=== PATIENT | male | born 1965 | race Hispanic/Latino ===

== ENCOUNTER 2017-06-03 13:00 | Emergency (ER) | payer SELFPAY ==
[2017-06-03 13:24] LABS: BASOPHILS % (AUTO) 0.8 % (0.0-5.0); EOSINOPHILS % (AUTO) 2.2 % (0.0-8.0); HEMATOCRIT 46.1 % (42-54); LYMPHOCYTES % (AUTO) 34.8 % (21.0-51.0); MEAN CORPUSCULAR HEMOGLOBIN 31.5 pg (27.0-33.0); MEAN CORPUSCULAR HGB CONC 34.7 g/dL (32.0-36.0); MEAN CORPUSCULAR VOLUME 90.6 fL (79-99); MONOCYTES % (AUTO) 11.2 % (3.0-13.0); NUCLEATED RED BLOOD CELLS 0.1 % (0.0-0.19); PLATELET COUNT (AUTO) 195 K/uL (130-400); RED BLOOD CELL COUNT(AUTO) 5.09 MIL/uL (4.50-6.20); RED CELL DISTRIBUTION WIDTH 13.6 % (11.0-15.5); WHITE BLOOD COUNT (AUTO) 6.1 K/uL (4.8-10.8)
[2017-06-03] MEDS ORDERED: ASPIRIN 325 MG TABLET ONE (13:32)
[2017-06-03] MEDS ORDERED: SODIUM POLYSTYRENE SULFONATE 15 GM/60 ML ML ONE (13:49)
[2017-06-03 14:04] LABS: INR 1.01 (0.85-1.15); PARTIAL THROMBOPLASTIN TIME 23.4 SEC (26.3-35.5); PROTHROMBIN TIME 10.4 SEC (9.6-11.6)
[2017-06-03] MEDS ORDERED: NITROGLYCERIN 0.4 MG SL TAB SL ONE (14:07)
[2017-06-03 14:30] LABS: ALANINE AMINOTRANSFERASE 61 U/L (12-78); ASPARTATE AMINOTRANSFERASE 77 U/L (10-37); BILIRUBIN,TOTAL 1.2 mg/dL (0.2-1.0); CARBON DIOXIDE 25 mmol/L (21-32); CHLORIDE 102 mmol/L (101-111); CREATINE KINASE MB < 0.5 ng/mL (0.5-3.6); CREATINE KINASE, TOTAL 37 U/L (21-232); CREATININE 0.8 mg/dL (0.5-1.5); GLOMERULAR FILTR. RATE CALC 108 mL/min (>60); GLUCOSE,RANDOM 310 mg/dL (70-105); POTASSIUM 3.8 mmol/L (3.5-5.1); SODIUM SERUM 136 mmol/L (136-145); TOTAL PROTEIN, SERUM 7.6 g/dL (6.0-8.3); UREA NITROGEN, BLOOD 12 mg/dL (7-18)
== END 2017-06-03 16:26 | disposition home or self-care (01) ==
LOC: EDH 13:00
DX: R07.89 Other chest pain (principal); N48.1 Balanitis; E11.9 Type 2 diabetes mellitus without complications; I10 Essential (primary) hypertension; E78.00 Pure hypercholesterolemia, unspecified; Z79.4 Long term (current) use of insulin; Z90.49 Acquired absence of other specified parts of digestive tract; Z72.0 Tobacco use
CPT/HCPCS: 36415; 71045; 80053; 82550; 82553; 84484; 85025; 85610; 85730; 93005

== ENCOUNTER 2019-04-21 13:07 | Emergency (ER) | payer OTHER | END 2019-04-21 13:47 | disposition home or self-care (01) | LOC: EDH 13:07 | DX: S01.81XA Laceration without foreign body of other part of head, initial encounter (principal); E11.9 Type 2 diabetes mellitus without complications; I10 Essential (primary) hypertension; Z72.0 Tobacco use; Z98.890 Other specified postprocedural states; W06.XXXA Fall from bed, initial encounter; Y93.89 Activity, other specified; Y92.89 Other specified places as the place of occurrence of the external cause; Y99.8 Other external cause status | CPT/HCPCS: 99282 ==

== ENCOUNTER 2019-05-31 11:33 | Inpatient (IN) | payer SELFPAY ==
[~2019-05-31] VITALS: Ht 157.5 cm; Wt 70.8 kg
[2019-05-31 12:07] LABS: HEMATOCRIT 43.6 % (42-54); MEAN CORPUSCULAR HGB CONC 34.6 g/dL (32.0-36.0); MEAN CORPUSCULAR VOLUME 89.5 fL (79-99); PLATELET COUNT (AUTO) 229 K/uL (130-400); RED BLOOD CELL COUNT(AUTO) 4.87 MIL/uL (4.50-6.20); RED CELL DISTRIBUTION WIDTH 12.3 % (11.0-15.5); WHITE BLOOD COUNT (AUTO) 10.7 K/uL (4.8-10.8)
[2019-05-31] MEDS ORDERED: MORPHINE SULFATE 2 MG/ML 1ML SYG ONE ×2 (12:07→16:02)
[2019-05-31] MEDS ORDERED: SODIUM CHLORIDE 0.9% 1000ML 1,000 ML IV ONE ×2 (12:07→15:54)
[2019-05-31 12:16] LABS: BASOPHILS % (AUTO) 0.5 % (0.0-5.0); EOSINOPHILS % (AUTO) 0.6 % (0.0-8.0); LYMPHOCYTES % (AUTO) 12.9 % (21.0-51.0); MONOCYTES % (AUTO) 10.4 % (3.0-13.0)
[2019-05-31] MEDS ORDERED: CEFTRIAXONE SODIUM 1 GM ONE (12:16)
[2019-05-31 12:18] LABS: BILIRUBIN,TOTAL 1.3 mg/dL (0.2-1.0); CREATININE 1.1 mg/dL (0.5-1.5); POTASSIUM 3.9 mmol/L (3.5-5.1); TOTAL PROTEIN, SERUM 8.7 g/dL (6.0-8.3)
[2019-05-31] MEDS ORDERED: INSULIN HUMULIN R 100 UNIT/ML 3ML ONE (12:41)
[2019-05-31] MEDS: SODIUM CHLORIDE 0.9% 1000ML 1,000 ML IV SCH (14:15)
[2019-05-31] MEDS: CLINDAMYCIN 600 MG/D5% WATER 50 ML IV SCH ×2 (14:15→23:07)
[2019-05-31] MEDS ORDERED: CLINDAMYCIN 300 MG/D5W 50 ML 50 ML IV SCH (14:15)
[2019-05-31] MEDS ORDERED: ACETAMINOPHEN 325 MG TAB PO PRN ×2 (14:15)
[2019-05-31] MEDS ORDERED: ONDANSETRON HCL 4 MG/2 ML VIAL IV PRN (14:15)
[2019-05-31 14:29] LABS: HEMOGLOBIN A1C 9.2 % (4.0-6.0)
[2019-05-31] MEDS ORDERED: CLINDAMYCIN 600 MG/D5% WATER 50 ML IV ONE (15:54)
[2019-05-31] MEDS ORDERED: MORPHINE SULFATE 2 MG/ML 1ML SYG IVP ONE (16:00)
[2019-05-31] MEDS ORDERED: INSULIN HUMULIN R 100 UNIT/ML 3ML SQ SCH (16:30)
[2019-05-31 17:12] VITALS: BP 137/77
[2019-05-31 20:52] VITALS: BP 142/75
[2019-05-31] MEDS ORDERED: INSULIN GLARGINE 100 UNITS/ML 10 ML VIAL SQ SCH (21:00)
[2019-05-31] MEDS: KETOROLAC TROMETHAMINE 30MG/ML IV PRN (21:11)
[2019-05-31] MEDS: FAMOTIDINE/PF 20 MG/2 ML VIAL IV SCH (21:11)
[2019-05-31] MEDS: INSULIN LISPRO 100 UNIT/ML 3ML SQ SCH (21:17)
[2019-06-01 00:20] VITALS: BP 109/64
[2019-06-01] MEDS: MORPHINE SULFATE 2 MG/ML 1ML SYG IVP PRN ×4 (00:50→22:52)
[2019-06-01 04:19] VITALS: BP 113/67
[2019-06-01] MEDS: CLINDAMYCIN 600 MG/D5% WATER 50 ML IV SCH ×3 (05:35→22:36)
--- NOTE | 2019-06-01 06:05 | NUR ---
POSITIVE BLOOD CULTURE LAB REPORTED ANEROBIC GRAM + COCCI IN CLUSTERS AND IN PAIRS.
[2019-06-01 06:23] LABS: BASOPHILS % (AUTO) 0.4 % (0.0-5.0); EOSINOPHILS % (AUTO) 1.6 % (0.0-8.0); HEMATOCRIT 40.3 % (42-54); LYMPHOCYTES % (AUTO) 20.9 % (21.0-51.0); MEAN CORPUSCULAR HEMOGLOBIN 30.8 pg (27.0-33.0); MEAN CORPUSCULAR HGB CONC 33.7 g/dL (32.0-36.0); MEAN CORPUSCULAR VOLUME 91.2 fL (79-99); MONOCYTES % (AUTO) 11.1 % (3.0-13.0); NEUTROPHILS % (AUTO) 65.3 % (40.0-77.0); PLATELET COUNT (AUTO) 217 K/uL (130-400); RED BLOOD CELL COUNT(AUTO) 4.42 MIL/uL (4.50-6.20); RED CELL DISTRIBUTION WIDTH 12.4 % (11.0-15.5); WHITE BLOOD COUNT (AUTO) 11.3 K/uL (4.8-10.8)
[2019-06-01 06:48] LABS: ALBUMIN 2.3 g/dL (3.5-5.0); BILIRUBIN,TOTAL 1.8 mg/dL (0.2-1.0); CREATININE 0.9 mg/dL (0.5-1.5); POTASSIUM 3.6 mmol/L (3.5-5.1); TOTAL PROTEIN, SERUM 7.4 g/dL (6.0-8.3)
[2019-06-01 08:00] VITALS: BP 145/78
[2019-06-01] MEDS: INSULIN LISPRO 100 UNIT/ML 3ML SQ SCH ×4 (08:33→12:00)
[2019-06-01] MEDS: ENOXAPARIN SODIUM 30 MG/0.3 ML SQ SCH (10:24)
[2019-06-01] MEDS: FAMOTIDINE/PF 20 MG/2 ML VIAL IV SCH ×2 (10:24→22:36)
[2019-06-01 12:00] VITALS: BP 114/63
[2019-06-01] MEDS ORDERED: VANCOMYCIN PROTOCOL PER PHARMACY IV SCH (15:15)
--- NOTE | 2019-06-01 15:29 | NUR ---
INITIAL SW spoke with patient. Patient states he lives with parents. Emergency contact is mother, Lucia Caro, [phone]. No home services. DME: [employer], glucometer (uses insulin). Patient works full time paramedic. He is able to complete ADL's and drives. PCP is MD at [facility]. Pharmacy is [facility]. DCP is home. Patient has no insurance or benefits. He is a [place] citizen and is presently employed. SW educated patient on [employer] $4 medication program and [employer] $5 medication program. Patient is being assisted by [employer] for financial matters. Addendum: 06/01/19 at 1533 by TORREY ARIZMENDI SS Amended: Links added.
[2019-06-01 16:00] VITALS: BP 129/74
[2019-06-01] MEDS: INSULIN HUMULIN 70/30 100 UNIT/ML 3ML SQ SCH (16:59)
[2019-06-01] MEDS ORDERED: DEXTROSE 50%-WATER 50 ML DISP.SYRIN IV PRN (17:00)
[2019-06-01] MEDS ORDERED: GLUCAGON 1MG KIT 1 MG ML IM PRN (17:00)
[2019-06-01] MEDS: VANCOMYCIN 1GM+NS 250ML 250 ML IV SCH (19:37)
[2019-06-01 20:20] VITALS: BP 133/74
[2019-06-01] MEDS: SODIUM CHLORIDE 0.9% 1000ML 1,000 ML IV SCH (22:36)
[2019-06-01] MEDS: INSULIN HUMULIN R 100 UNIT/ML 3ML SQ SCH (22:40)
[2019-06-02 00:28] VITALS: BP 134/73
[2019-06-02 04:28] VITALS: BP 123/67
[2019-06-02] MEDS: SODIUM CHLORIDE 0.9% 1000ML 1,000 ML IV SCH ×2 (06:12→16:15)
[2019-06-02] MEDS: INSULIN HUMULIN R 100 UNIT/ML 3ML SQ SCH ×4 (06:13→20:41)
[2019-06-02] MEDS: CLINDAMYCIN 600 MG/D5% WATER 50 ML IV SCH ×3 (06:16→20:41)
[2019-06-02] MEDS: MORPHINE SULFATE 2 MG/ML 1ML SYG IVP PRN ×2 (06:17→13:13)
[2019-06-02] MEDS: INSULIN HUMULIN 70/30 100 UNIT/ML 3ML SQ SCH ×2 (06:25→18:23)
[2019-06-02 08:00] VITALS: BP 121/69
[2019-06-02] MEDS: VANCOMYCIN 1GM+NS 250ML 250 ML IV SCH ×2 (09:11→20:41)
[2019-06-02] MEDS: FAMOTIDINE/PF 20 MG/2 ML VIAL IV SCH ×2 (09:11→20:41)
[2019-06-02] MEDS: ENOXAPARIN SODIUM 30 MG/0.3 ML SQ SCH (09:13)
[2019-06-02 11:50] VITALS: BP 120/64
--- NOTE | 2019-06-02 15:28 | NUR ---
NUTRITION EDUCATION MICHELLE provided Diabetes Nutrition Education. MICHELLE provided reference materials and handouts. Pt with no questions at this time. MICHELLE discussed nutrition recommendations with Pt and encouraged to notify as questions/concerns arise. Addendum: 06/02/19 at [address] RD Amended: Links added.
--- NOTE | 2019-06-02 15:33 | NUR ---
RD NOTIFICATION Pt tolerating 75gm CCD with no report of GI distress, Good PO intake at 100%. RD provided Diabetes Nutrition Education. Pt verbalized understanding. RD to continue to monitor. Please notify RD as additional nutrition concerns arise. Thank you. Addendum: 06/02/19 at [address] RD Amended: Links added.
[2019-06-02 16:00] VITALS: BP 110/66
[2019-06-02 20:12] VITALS: BP 136/79
[2019-06-02] MEDS: KETOROLAC TROMETHAMINE 30MG/ML IV PRN (20:48)
[2019-06-03 00:16] VITALS: BP 128/67
[2019-06-03] MEDS: SODIUM CHLORIDE 0.9% 1000ML 1,000 ML IV SCH (02:13)
[2019-06-03] MEDS: MORPHINE SULFATE 2 MG/ML 1ML SYG IVP PRN ×2 (03:09→08:38)
[2019-06-03] MEDS ORDERED: insulin 70/30 SQ (03:15)
[2019-06-03 03:40] VITALS: BP 115/67
[2019-06-03 03:57] LABS: BASOPHILS % (AUTO) 0.4 % (0.0-5.0); EOSINOPHILS % (AUTO) 1.3 % (0.0-8.0); HEMATOCRIT 38.7 % (42-54); LYMPHOCYTES % (AUTO) 22.7 % (21.0-51.0); MEAN CORPUSCULAR HEMOGLOBIN 30.7 pg (27.0-33.0); MEAN CORPUSCULAR HGB CONC 34.4 g/dL (32.0-36.0); MEAN CORPUSCULAR VOLUME 89.4 fL (79-99); MONOCYTES % (AUTO) 11.4 % (3.0-13.0); NEUTROPHILS % (AUTO) 63.4 % (40.0-77.0); PLATELET COUNT (AUTO) 230 K/uL (130-400); RED BLOOD CELL COUNT(AUTO) 4.33 MIL/uL (4.50-6.20); RED CELL DISTRIBUTION WIDTH 12.2 % (11.0-15.5); WHITE BLOOD COUNT (AUTO) 8.5 K/uL (4.8-10.8)
[2019-06-03 04:17] LABS: CREATININE 0.8 mg/dL (0.5-1.5); CRP QUANTITATIVE 99.9 mg/L (0.00-9.0); MAGNESIUM 1.9 mg/dL (1.80-2.40); PHOSPHORUS 4.2 mg/dL (2.5-4.9); POTASSIUM 3.2 mmol/L (3.5-5.1)
[2019-06-03 05:15] LABS: ERYTHROCYTE SEDIMENTATION RATE 58 MM/HR (0-20)
[2019-06-03] MEDS ORDERED: POTASSIUM CHLORIDE 10% ELIXIR 20 MEQ/15 ML UDCUP PO PRN (05:45)
[2019-06-03] MEDS ORDERED: LIDOCAINE HCL-MPF 1% 2ML VIAL IV PRN (05:45)
[2019-06-03] MEDS ORDERED: POTASSIUM CHLORIDE 20MEQ/100ML 100 ML IV PRN (05:45)
[2019-06-03] MEDS ORDERED: POTASSIUM CHLORIDE 20 MEQ ERTAB PO ONE (05:51)
[2019-06-03] MEDS: CLINDAMYCIN 600 MG/D5% WATER 50 ML IV SCH (05:53)
[2019-06-03] MEDS: INSULIN HUMULIN R 100 UNIT/ML 3ML SQ SCH ×4 (05:57→21:23)
[2019-06-03 08:08] VITALS: BP 133/79
[2019-06-03] MEDS: CEFAZOLIN SODIUM 1 GM VIAL IVP SCH ×3 (08:36→23:32)
[2019-06-03] MEDS: ENOXAPARIN SODIUM 30 MG/0.3 ML SQ SCH (08:37)
[2019-06-03] MEDS: FAMOTIDINE/PF 20 MG/2 ML VIAL IV SCH ×2 (08:37→21:20)
[2019-06-03] MEDS: POTASSIUM CHLORIDE 20 MEQ ERTAB PO PRN ×2 (08:38→18:39)
[2019-06-03] MEDS: INSULIN HUMULIN 70/30 100 UNIT/ML 3ML SQ SCH ×2 (08:50→15:35)
[2019-06-03] MEDS ORDERED: LIDOCAINE HCL-MPF 2% 5ML VIAL IM SCH (10:15)
[2019-06-03 11:14] VITALS: BP 118/72
[2019-06-03] MEDS: KETOROLAC TROMETHAMINE 30MG/ML IV PRN ×2 (15:34→21:18)
[2019-06-03 16:26] VITALS: BP 124/77
[2019-06-03 19:51] VITALS: BP 122/68
[2019-06-04 03:43] LABS: BASOPHILS % (AUTO) 0.5 % (0.0-5.0); EOSINOPHILS % (AUTO) 2.6 % (0.0-8.0); HEMATOCRIT 39.6 % (42-54); LYMPHOCYTES % (AUTO) 27.1 % (21.0-51.0); MEAN CORPUSCULAR HEMOGLOBIN 30.9 pg (27.0-33.0); MEAN CORPUSCULAR HGB CONC 34.3 g/dL (32.0-36.0); MONOCYTES % (AUTO) 16.1 % (3.0-13.0); NEUTROPHILS % (AUTO) 52.7 % (40.0-77.0); PLATELET COUNT (AUTO) 246 K/uL (130-400); RED CELL DISTRIBUTION WIDTH 12.2 % (11.0-15.5); WHITE BLOOD COUNT (AUTO) 6.3 K/uL (4.8-10.8)
[2019-06-04 04:00] VITALS: BP 119/70
[2019-06-04 04:01] LABS: CREATININE 0.9 mg/dL (0.5-1.5); CRP QUANTITATIVE 64.6 mg/L (0.00-9.0); POTASSIUM 3.5 mmol/L (3.5-5.1)
[2019-06-04 04:41] LABS: ERYTHROCYTE SEDIMENTATION RATE 50 MM/HR (0-20)
[2019-06-04] MEDS: CEFAZOLIN SODIUM 1 GM VIAL IVP SCH ×2 (06:12→16:46)
[2019-06-04] MEDS: INSULIN HUMULIN 70/30 100 UNIT/ML 3ML SQ SCH ×2 (06:16→17:00)
[2019-06-04] MEDS: INSULIN HUMULIN R 100 UNIT/ML 3ML SQ SCH ×3 (07:30→16:30)
[2019-06-04 08:00] VITALS: BP 125/72
[2019-06-04] MEDS: FAMOTIDINE/PF 20 MG/2 ML VIAL IV SCH (08:39)
[2019-06-04] MEDS: MORPHINE SULFATE 2 MG/ML 1ML SYG IVP PRN ×2 (08:40→17:15)
[2019-06-04] MEDS: POTASSIUM CHLORIDE 20 MEQ ERTAB PO PRN ×2 (08:40→12:15)
[2019-06-04] MEDS: ENOXAPARIN SODIUM 30 MG/0.3 ML SQ SCH (08:42)
[2019-06-04 11:00] VITALS: BP 104/70
[2019-06-04 16:00] VITALS: BP 121/76
[2019-06-04] MEDS ORDERED: METF-527 PO (16:53)
[2019-06-04] MEDS ORDERED: ROSU5TAB12 PO (16:53)
[2019-06-04] MEDS ORDERED: LISI10TA7 PO (16:53)
[2019-06-04] MEDS ORDERED: GLIP10TA9 PO (16:53)
[2019-06-04] MEDS ORDERED: SULF1TAB42 PO (16:56)
--- NOTE | 2019-06-04 17:20 | NUR ---
Educated patient on effective hand hygeine prior to dressing changes, proper aseptic technique for Rt leg dressing changes and iodoform packing. Patient able to verbalize technique correctly and stated if he was unable to perform, he would teach significant other to perform for him at home.
--- NOTE | 2019-06-04 18:40 | NUR ---
Discharge instructions, medication prescription and follow up recommendations provided. Verbalized understanding. Prescriptions provided to patient. Patient able to verbalize wound care procedure correctly. PIV to RFA removed, bleeding controlled and dressing applied. Patient assisted by wheelchair to emergency entrance, family to transport to home.
== END 2019-06-04 19:07 | disposition home or self-care (01) | DRG 580 ==
LOC: EDH 11:33 → EDHIP 11:34 → 4BH 17:06
PROVIDERS: ADMIT Internal Medicine; ATTEND Internal Medicine
PROC: 0J9N0ZZ Drainage of Right Lower Leg Subcutaneous Tissue and Fascia, Open Approach (ICD-10-PCS; principal; 2019-06-03)
DX: L03.115 Cellulitis of right lower limb (principal); E87.1 Hypo-osmolality and hyponatremia; E44.1 Mild protein-calorie malnutrition; E11.65 Type 2 diabetes mellitus with hyperglycemia; Z79.4 Long term (current) use of insulin; E78.5 Hyperlipidemia, unspecified; I10 Essential (primary) hypertension; F17.210 Nicotine dependence, cigarettes, uncomplicated; L02.415 Cutaneous abscess of right lower limb; Z68.28 Body mass index [BMI] 28.0-28.9, adult
CPT/HCPCS: 36415; 76882; 80048; 80053; 80202; 82728; 82948; 83036; 83605; 83735; 84100; 84145; 85025; 85651; 86140; 87040; 87070; 87076; 87077; 87186; 93971; G0378; J0690; J0696; J1650; J1815; J1885; J2405; J3370; J3490; J7030

== ENCOUNTER 2019-06-22 13:57 | Inpatient (IN) | payer OTHER, SELFPAY ==
[~2019-06-22] VITALS: Ht 165.1 cm; Wt 81.2 kg
[~2019-06-22 13:57] MED LIST: GLIP10TA9 PO; LISI10TA7 PO; METF-527 PO; ROSU5TAB12 PO; SULF1TAB42 PO; insulin 70/30 SQ
[2019-06-22 14:28] LABS: BASOPHILS % (AUTO) 0.7 % (0.0-5.0); EOSINOPHILS % (AUTO) 0.2 % (0.0-8.0); HEMATOCRIT 41.9 % (42-54); LYMPHOCYTES % (AUTO) 6.1 % (21.0-51.0); MEAN CORPUSCULAR HEMOGLOBIN 30.6 pg (27.0-33.0); MEAN CORPUSCULAR HGB CONC 35.1 g/dL (32.0-36.0); MEAN CORPUSCULAR VOLUME 87.1 fL (79-99); MONOCYTES % (AUTO) 9.9 % (3.0-13.0); NEUTROPHILS % (AUTO) 81.8 % (40.0-77.0); PLATELET COUNT (AUTO) 212 K/uL (130-400); RED BLOOD CELL COUNT(AUTO) 4.81 MIL/uL (4.50-6.20); RED CELL DISTRIBUTION WIDTH 12.4 % (11.0-15.5); WHITE BLOOD COUNT (AUTO) 18.1 K/uL (4.8-10.8)
[2019-06-22] MEDS ORDERED: KETOROLAC TROMETHAMINE 15MG/ML ONE (14:37)
[2019-06-22 14:49] LABS: CREATININE 1.2 mg/dL (0.5-1.5); POTASSIUM 3.8 mmol/L (3.5-5.1)
[2019-06-22 14:57] LABS: ALBUMIN 2.6 g/dL (3.5-5.0); BILIRUBIN,TOTAL 1.9 mg/dL (0.2-1.0); TOTAL PROTEIN, SERUM 8.2 g/dL (6.0-8.3)
[2019-06-22 16:02] LABS: APPEARANCE,URINE Clear (CLEAR); BILIRUBIN,URINE Negative (NEGATIVE); COLOR,URINE Dark Yellow (YELLOW); GLUCOSE, URINE (UA) >=1000 mg/dL (NEGATIVE); KETONES,URINE 40 mg/dL (NEGATIVE); LEUKOCYTE ESTERASE ,URINE Negative (NEGATIVE); NITRATE,URINE Negative (NEGATIVE); OCCULT BLOOD,URINE Negative (NEGATIVE); PH,URINE 5.5 (5.0-8.0); PROTEIN,URINE Trace mg/dL (NEGATIVE)
[2019-06-22 16:02] LABS: ABG BASE EXCESS -3.2 mmol/L (-2.0-3.0); ABG HCO3 19.4 mmol/L (21.0-28.0); ABG OXYGEN SATURATION 96.4 % (95.0-99.0); ABG PCO2 29 mmHg (35-48)
[2019-06-22 16:15] LABS: RBC,URINE 0-1 /HPF (0-1)
[2019-06-22 16:17] LABS: BACTERIA,URINE Few /HPF (None Seen); SQUAMOUS EPITHELIAL CELL,UR Few /HPF (0-2)
[2019-06-22] MEDS ORDERED: CEFTRIAXONE SODIUM 2 GM VIAL ONE (16:54)
[2019-06-22] MEDS ORDERED: ONDANSETRON HCL 4 MG/2 ML VIAL IVP PRN (18:30)
[2019-06-22] MEDS ORDERED: ACETAMINOPHEN 325 MG TAB PO PRN (18:30)
[2019-06-22] MEDS ORDERED: GLUCAGON 1MG KIT 1 MG ML IM PRN (18:30)
[2019-06-22] MEDS ORDERED: KETOROLAC TROMETHAMINE 15MG/ML IV PRN (18:30)
[2019-06-22] MEDS ORDERED: DEXTROSE 50%-WATER 50 ML DISP.SYRIN IV PRN (18:30)
[2019-06-22] MEDS: CEFTRIAXONE SODIUM 1 GM IVP SCH (20:00)
[2019-06-22] MEDS ORDERED: ACETAMINOPHEN 325 MG TAB ONE (20:36)
[2019-06-22 22:12] VITALS: BP 139/72
[2019-06-22 22:13] VITALS: BP 133/76
[2019-06-22] MEDS: INSULIN HUMULIN R 100 UNIT/ML 3ML SQ SCH (22:47)
[2019-06-22] MEDS: MORPHINE SULFATE 2 MG/ML 1ML SYG IVP PRN (22:47)
[2019-06-22 23:56] VITALS: BP 126/62
[2019-06-23] MEDS: MORPHINE SULFATE 2 MG/ML 1ML SYG IVP PRN (03:04)
[2019-06-23 04:04] VITALS: BP 154/76
[2019-06-23 04:22] LABS: BASOPHILS % (AUTO) 0.2 % (0.0-5.0); EOSINOPHILS % (AUTO) 0.2 % (0.0-8.0); HEMATOCRIT 36.9 % (42-54); LYMPHOCYTES % (AUTO) 10.5 % (21.0-51.0); MEAN CORPUSCULAR HGB CONC 34.4 g/dL (32.0-36.0); MEAN CORPUSCULAR VOLUME 87.2 fL (79-99); MONOCYTES % (AUTO) 12.8 % (3.0-13.0); NEUTROPHILS % (AUTO) 75.3 % (40.0-77.0); PLATELET COUNT (AUTO) 198 K/uL (130-400); RED BLOOD CELL COUNT(AUTO) 4.23 MIL/uL (4.50-6.20); RED CELL DISTRIBUTION WIDTH 12.8 % (11.0-15.5); WHITE BLOOD COUNT (AUTO) 13.5 K/uL (4.8-10.8)
[2019-06-23 04:50] LABS: BILIRUBIN,DIRECT 0.9 mg/dL (0.0-0.3); BILIRUBIN,TOTAL 1.4 mg/dL (0.2-1.0); CREATININE 0.9 mg/dL (0.5-1.5); MAGNESIUM 1.8 mg/dL (1.80-2.40); PHOSPHORUS 2.9 mg/dL (2.5-4.9); POTASSIUM 3.5 mmol/L (3.5-5.1); THYROID STIMULATING HORMONE 0.74 uIU/mL (0.36-3.74); TOTAL PROTEIN, SERUM 6.8 g/dL (6.0-8.3)
[2019-06-23 05:48] LABS: ERYTHROCYTE SEDIMENTATION RATE 63 MM/HR (0-20)
[2019-06-23] MEDS: INSULIN HUMULIN R 100 UNIT/ML 3ML SQ SCH ×3 (06:06→16:30)
[2019-06-23] MEDS ORDERED: HUM10VIA SQ (07:25)
[2019-06-23] MEDS ORDERED: INS7030 SQ (07:25)
[2019-06-23 08:35] VITALS: BP 127/67
[2019-06-23] MEDS: ENOXAPARIN SODIUM 30 MG/0.3 ML SQ SCH (08:41)
[2019-06-23] MEDS ORDERED: VANCOMYCIN PROTOCOL PER PHARMACY IV PRN (08:45)
[2019-06-23] MEDS ORDERED: VANCOMYCIN 1GM+NS 250ML 250 ML IV SCH (08:45)
[2019-06-23] MEDS ORDERED: COMPOUND IV REFRIGERATED 1 EACH IVSOLN MISC PRN (09:00)
[2019-06-23] MEDS: VANCOMYCIN 1.25 GM in SODIUM CHLORIDE 0.9% 250 ML IV SCH ×2 (09:00→21:00)
[2019-06-23] MEDS ORDERED: SODIUM CHLORIDE 0.9% 250 ML IV ONE (10:39)
[2019-06-23] MEDS ORDERED: DEXTROSE 50%-WATER 50 ML DISP.SYRIN IV PRN (10:45)
[2019-06-23] MEDS ORDERED: SODIUM CHLORIDE 0.9% 1000ML 1,000 ML IV SCH (10:45)
[2019-06-23] MEDS ORDERED: GLUCAGON 1MG KIT 1 MG ML IM PRN (10:45)
[2019-06-23] MEDS: NS-20 MEQ KCL 1000ML 1,000 ML IV SCH ×2 (11:15→19:15)
[2019-06-23] MEDS ORDERED: ZOSYN 3.375GM+NS 50ML 50 ML IV ONE (11:59)
[2019-06-23] MEDS ORDERED: GABAPENTIN 300 MG CAPSULE ONE (11:59)
[2019-06-23] MEDS: ZOSYN 3.375GM+NS 50ML 50 ML IV SCH ×2 (12:02→21:25)
[2019-06-23 12:29] VITALS: BP 128/67
--- NOTE | 2019-06-23 13:36 | NUR ---
DC PLAN PATIENT IN COVRI ISOLATION UNIT. INFO GOTTEN FROM PREVIOUS ADMISSION. Patient states he lives with parents. Emergency contact is mother, Lucia Caro, [phone]. No home services. DME: [employer], glucometer (uses insulin). Patient works maritime engineer. He is able to complete ADL's and drives. PCP is MD at [facility]. Pharmacy is [facility]. DCP is home. Patient has no insurance or benefits. He is a [place] citizen and is presently employed. MARCUS educated patient on [employer] $4 medication program and [facility] $5 medication program. Patient is being assisted by [employer] for financial matters. Addendum: 06/23/19 at 1344 by JOSE A HILL RN CM Amended: Links added.
[2019-06-23 16:16] VITALS: BP 114/69
[2019-06-23 19:49] VITALS: BP 140/87
[2019-06-23] MEDS ORDERED: GABAPENTIN 300 MG CAPSULE PO SCH (21:00)
[2019-06-23] MEDS: CEFTRIAXONE SODIUM 1 GM IVP SCH (21:25)
[2019-06-23] MEDS: GABAPENTIN 300 MG CAPSULE PO SCH (21:25)
[2019-06-23] MEDS: INSULIN GLARGINE 100 UNITS/ML 10 ML VIAL SQ SCH (21:27)
[2019-06-23] MEDS: INSULIN LISPRO 100 UNIT/ML 3ML SQ SCH (21:28)
[2019-06-23 22:05] LABS: AMPHET/METH SCREEN,URINE NEGATIVE (NEGATIVE); BARBITURATE SCREEN, URINE NEGATIVE (NEGATIVE); BENZODIAZEPINES SCREEN,URINE NEGATIVE (NEGATIVE); CANNABINOID SCREEN,URINE NEGATIVE (NEGATIVE); COCAINE SCREEN,URINE NEGATIVE (NEGATIVE); OPIATE SCREEN,URINE NEGATIVE (NEGATIVE); PHENCYCLIDINE SCREEN,URINE NEGATIVE (NEGATIVE)
[2019-06-23 23:40] VITALS: BP 116/63
[2019-06-24] MEDS: NS-20 MEQ KCL 1000ML 1,000 ML IV SCH ×3 (03:15→20:58)
[2019-06-24] MEDS: ZOSYN 3.375GM+NS 50ML 50 ML IV SCH (04:00)
[2019-06-24] MEDS: MORPHINE SULFATE 2 MG/ML 1ML SYG IVP PRN ×2 (04:08→10:02)
[2019-06-24 04:37] VITALS: BP 121/65
[2019-06-24 05:11] LABS: BASOPHILS % (AUTO) 0.3 % (0.0-5.0); EOSINOPHILS % (AUTO) 0.8 % (0.0-8.0); HEMATOCRIT 36.7 % (42-54); LYMPHOCYTES % (AUTO) 19.3 % (21.0-51.0); MEAN CORPUSCULAR HEMOGLOBIN 29.8 pg (27.0-33.0); MEAN CORPUSCULAR HGB CONC 34.1 g/dL (32.0-36.0); MEAN CORPUSCULAR VOLUME 87.4 fL (79-99); MONOCYTES % (AUTO) 12.2 % (3.0-13.0); NEUTROPHILS % (AUTO) 66.3 % (40.0-77.0); PLATELET COUNT (AUTO) 224 K/uL (130-400); WHITE BLOOD COUNT (AUTO) 12.3 K/uL (4.8-10.8)
[2019-06-24 05:42] LABS: ALBUMIN 1.7 g/dL (3.5-5.0); BILIRUBIN,TOTAL 1.6 mg/dL (0.2-1.0); CREATININE 0.8 mg/dL (0.5-1.5); PHOSPHORUS 3.1 mg/dL (2.5-4.9); POTASSIUM 3.3 mmol/L (3.5-5.1); TOTAL PROTEIN, SERUM 6.5 g/dL (6.0-8.3)
[2019-06-24 05:47] LABS: HEMOGLOBIN A1C 9.3 % (4.0-6.0)
[2019-06-24 05:51] LABS: B-TYPE NATRIURETIC PEPTIDE 54 pg/mL (0-100)
[2019-06-24 06:02] LABS: CRP QUANTITATIVE 238.8 mg/L (0.00-9.0)
--- NOTE | 2019-06-24 06:05 | NUR ---
0545: NOTIFIED OF CRITICAL D-DIMER LEVEL OF 1501 BY LABORATORY AT THIS TIME 0600: HOSPITAL SILK WINDING MACHINE OPERATOR, VANIA STRATTON, NOTIFIED OF CRITICAL RESULTS AT THIS TIME. NO NEW ORDERS RECEIVED
[2019-06-24] MEDS: INSULIN LISPRO 100 UNIT/ML 3ML SQ SCH ×5 (06:22→20:52)
[2019-06-24 06:26] LABS: ERYTHROCYTE SEDIMENTATION RATE 83 MM/HR (0-20)
[2019-06-24] MEDS ORDERED: INSULIN LISPRO 100 UNIT/ML 3ML SQ SCH (07:30)
[2019-06-24] MEDS: GABAPENTIN 300 MG CAPSULE PO SCH ×3 (10:05→20:58)
[2019-06-24] MEDS: ENOXAPARIN SODIUM 30 MG/0.3 ML SQ SCH (10:07)
[2019-06-24] MEDS: VANCOMYCIN 1.25 GM in SODIUM CHLORIDE 0.9% 250 ML IV SCH ×2 (10:09→21:00)
[2019-06-24 10:27] VITALS: BP 140/72
--- NOTE | 2019-06-24 11:55 | NUR ---
CONSULT Phoned in consult to 's office.
[2019-06-24 12:25] VITALS: BP 123/70
[2019-06-24] MEDS ORDERED: POTASSIUM CHLORIDE 20 MEQ ERTAB PO SCH (12:30)
[2019-06-24] MEDS ORDERED: GADODIAMIDE 10 MMOL/20 ML VIAL IV ONE (13:01)
[2019-06-24 16:38] VITALS: BP 111/72
[2019-06-24 20:14] VITALS: BP 131/80
[2019-06-24] MEDS: HYDROCODONE/ACETAMINOPHEN 5/325 MG TAB PO PRN (20:58)
[2019-06-24] MEDS: CEFTRIAXONE SODIUM 1 GM IVP SCH (20:58)
[2019-06-24] MEDS: INSULIN GLARGINE 100 UNITS/ML 10 ML VIAL SQ SCH (21:19)
[2019-06-24 23:57] VITALS: BP 115/69
[2019-06-25] MEDS: NS-20 MEQ KCL 1000ML 1,000 ML IV SCH ×3 (03:15→20:17)
[2019-06-25 03:24] VITALS: BP 124/70
[2019-06-25 04:25] LABS: BASOPHILS % (AUTO) 0.3 % (0.0-5.0); EOSINOPHILS % (AUTO) 1.4 % (0.0-8.0); HEMATOCRIT 36.2 % (42-54); LYMPHOCYTES % (AUTO) 22.4 % (21.0-51.0); MEAN CORPUSCULAR HEMOGLOBIN 30.2 pg (27.0-33.0); MEAN CORPUSCULAR VOLUME 88.9 fL (79-99); MONOCYTES % (AUTO) 11.1 % (3.0-13.0); NEUTROPHILS % (AUTO) 63.7 % (40.0-77.0); PLATELET COUNT (AUTO) 246 K/uL (130-400); RED BLOOD CELL COUNT(AUTO) 4.07 MIL/uL (4.50-6.20); RED CELL DISTRIBUTION WIDTH 13.2 % (11.0-15.5); WHITE BLOOD COUNT (AUTO) 10.4 K/uL (4.8-10.8)
[2019-06-25 04:37] LABS: CREATININE 0.9 mg/dL (0.5-1.5); MAGNESIUM 1.8 mg/dL (1.80-2.40); PHOSPHORUS 3.5 mg/dL (2.5-4.9); POTASSIUM 3.9 mmol/L (3.5-5.1)
[2019-06-25 04:50] LABS: CRP QUANTITATIVE 91.7 mg/L (0.00-9.0)
[2019-06-25] MEDS: INSULIN LISPRO 100 UNIT/ML 3ML SQ SCH ×7 (05:46→21:00)
[2019-06-25] MEDS: HYDROCODONE/ACETAMINOPHEN 5/325 MG TAB PO PRN ×3 (06:02→21:31)
[2019-06-25 07:57] VITALS: BP 138/74
[2019-06-25] MEDS: GABAPENTIN 300 MG CAPSULE PO SCH ×2 (08:07→20:18)
[2019-06-25] MEDS: VANCOMYCIN 1.25 GM in SODIUM CHLORIDE 0.9% 250 ML IV SCH ×2 (08:07→21:00)
[2019-06-25] MEDS: ENOXAPARIN SODIUM 30 MG/0.3 ML SQ SCH (08:08)
[2019-06-25 12:00] VITALS: BP 163/77
[2019-06-25] MEDS ORDERED: GABAPENTIN 300 MG CAPSULE PO SCH (14:00)
[2019-06-25] MEDS ORDERED: GABAPENTIN 100 MG CAPSULE ONE (14:10)
[2019-06-25 15:51] VITALS: BP 131/78
[2019-06-25 19:32] VITALS: BP 129/78
[2019-06-25] MEDS: CEFTRIAXONE SODIUM 1 GM IVP SCH (20:17)
[2019-06-25] MEDS: GABAPENTIN 100 MG CAPSULE PO SCH (20:18)
[2019-06-25] MEDS: INSULIN GLARGINE 100 UNITS/ML 10 ML VIAL SQ SCH (20:42)
[2019-06-26 00:15] VITALS: BP 129/65
[2019-06-26] MEDS: NS-20 MEQ KCL 1000ML 1,000 ML IV SCH (03:15)
[2019-06-26 04:11] VITALS: BP 124/74
[2019-06-26 05:25] LABS: BASOPHILS % (AUTO) 0.3 % (0.0-5.0); EOSINOPHILS % (AUTO) 1.6 % (0.0-8.0); HEMATOCRIT 35.9 % (42-54); LYMPHOCYTES % (AUTO) 24.3 % (21.0-51.0); MEAN CORPUSCULAR HEMOGLOBIN 29.7 pg (27.0-33.0); MEAN CORPUSCULAR HGB CONC 33.7 g/dL (32.0-36.0); MEAN CORPUSCULAR VOLUME 88.2 fL (79-99); MONOCYTES % (AUTO) 10.2 % (3.0-13.0); NEUTROPHILS % (AUTO) 62.6 % (40.0-77.0); PLATELET COUNT (AUTO) 275 K/uL (130-400); RED BLOOD CELL COUNT(AUTO) 4.07 MIL/uL (4.50-6.20); RED CELL DISTRIBUTION WIDTH 13.4 % (11.0-15.5); WHITE BLOOD COUNT (AUTO) 9.8 K/uL (4.8-10.8)
[2019-06-26] MEDS: INSULIN LISPRO 100 UNIT/ML 3ML SQ SCH ×7 (05:44→20:49)
[2019-06-26 05:47] LABS: CREATININE 0.9 mg/dL (0.5-1.5); POTASSIUM 3.7 mmol/L (3.5-5.1)
[2019-06-26] MEDS: HYDROCODONE/ACETAMINOPHEN 5/325 MG TAB PO PRN ×2 (06:19→18:19)
[2019-06-26] MEDS: VANCOMYCIN 1.25 GM in SODIUM CHLORIDE 0.9% 250 ML IV SCH ×2 (07:04→20:36)
[2019-06-26] MEDS ORDERED: VANCOMYCIN 2 GM in SODIUM CHLORIDE 0.9% 500ML 500 ML IV SCH (07:15)
[2019-06-26] MEDS: GABAPENTIN 300 MG CAPSULE PO SCH ×3 (07:55→20:37)
[2019-06-26] MEDS: GABAPENTIN 100 MG CAPSULE PO SCH ×3 (07:55→20:37)
[2019-06-26] MEDS: ENOXAPARIN SODIUM 30 MG/0.3 ML SQ SCH (07:56)
--- NOTE | 2019-06-26 08:00 | NUR ---
ASSESSMENT PT IS AAOX3 DENIES CP DENIES SOB DENIES NV NO COMPLAINTS. STATES HE CAN MOVE HIS LEGS BETTER TODAY COMPARED TO YESTERDAY AND DAYS PRIOR. CALL LIGHT WITHIN REACH.
[2019-06-26 08:36] VITALS: BP 115/71
[2019-06-26 16:23] VITALS: BP 155/84
[2019-06-26 19:52] VITALS: BP 140/74
[2019-06-26] MEDS: CEFTRIAXONE SODIUM 1 GM IVP SCH (20:35)
[2019-06-26] MEDS: INSULIN GLARGINE 100 UNITS/ML 10 ML VIAL SQ SCH (20:48)
[2019-06-26 23:42] VITALS: BP 123/73
[2019-06-27 03:22] VITALS: BP 139/61
[2019-06-27] MEDS: HYDROCODONE/ACETAMINOPHEN 5/325 MG TAB PO PRN ×2 (04:40→15:46)
[2019-06-27] MEDS: INSULIN LISPRO 100 UNIT/ML 3ML SQ SCH ×7 (05:53→20:28)
[2019-06-27 06:03] LABS: BASOPHILS % (AUTO) 0.3 % (0.0-5.0); EOSINOPHILS % (AUTO) 2.2 % (0.0-8.0); HEMATOCRIT 34.5 % (42-54); LYMPHOCYTES % (AUTO) 22.8 % (21.0-51.0); MEAN CORPUSCULAR HEMOGLOBIN 30.4 pg (27.0-33.0); MEAN CORPUSCULAR HGB CONC 34.5 g/dL (32.0-36.0); MONOCYTES % (AUTO) 8.4 % (3.0-13.0); PLATELET COUNT (AUTO) 317 K/uL (130-400); RED BLOOD CELL COUNT(AUTO) 3.92 MIL/uL (4.50-6.20); RED CELL DISTRIBUTION WIDTH 13.4 % (11.0-15.5); WHITE BLOOD COUNT (AUTO) 8.8 K/uL (4.8-10.8)
[2019-06-27 06:23] LABS: CREATININE 0.9 mg/dL (0.5-1.5); POTASSIUM 3.5 mmol/L (3.5-5.1)
[2019-06-27] MEDS ORDERED: POTASSIUM CHLORIDE 20MEQ/100ML 100 ML IV PRN (07:00)
[2019-06-27] MEDS ORDERED: LIDOCAINE HCL-MPF 1% 2ML VIAL IV PRN (07:00)
--- NOTE | 2019-06-27 08:00 | NUR ---
AM ASSESSMENT PT LAYING IN BED, WATCHING TV. A/O X 3. NO SOB. NO DISTRESS NOTED. DENIES CHEST PAIN OR DISCOMFORT. DENIES PALPITATIONS. TELE: SR. DENIES N/V AND/OR DIARRHEA. BLE WEAKNESS. C/O OCC PAIN TO LLE. UP W/ASSISTANCE. INSTRUCTED TO CALL FOR ASSISTANCE. CALL MIKAELA W/IN REACH.
[2019-06-27 08:24] VITALS: BP 125/74
[2019-06-27] MEDS: GABAPENTIN 300 MG CAPSULE PO SCH ×3 (08:34→20:24)
[2019-06-27] MEDS: ENOXAPARIN SODIUM 30 MG/0.3 ML SQ SCH (08:34)
[2019-06-27] MEDS: GABAPENTIN 100 MG CAPSULE PO SCH (08:35)
[2019-06-27] MEDS: POTASSIUM CHLORIDE 10% ELIXIR 20 MEQ/15 ML UDCUP PO PRN ×2 (08:35→11:25)
[2019-06-27] MEDS: VANCOMYCIN 1.25 GM in SODIUM CHLORIDE 0.9% 250 ML IV SCH ×2 (08:39→20:27)
--- NOTE | 2019-06-27 09:36 | NUR ---
NEUROLOGY DR HENDERSON IN TO SEE PT. UPDATED & PT'S STATUS. PLAN OF CARE REVIEWED. NEW ORDERS RECEIVED & FAXED TO PHARMACY.
[2019-06-27] MEDS: FOLIC ACID 1 MG TABLET PO SCH ×2 (11:05→20:23)
[2019-06-27] MEDS: THIAMINE HCL 100 MG TABLET PO SCH (11:05)
[2019-06-27 12:08] VITALS: BP 124/70
[2019-06-27 16:30] VITALS: BP 127/66
[2019-06-27 20:07] VITALS: BP 121/73
[2019-06-27] MEDS: CEFTRIAXONE SODIUM 1 GM IVP SCH (20:23)
[2019-06-27] MEDS: INSULIN GLARGINE 100 UNITS/ML 10 ML VIAL SQ SCH (20:28)
--- NOTE | 2019-06-27 21:00 | NUR ---
PT RESULT FOR COVID CAME BACK NEGATIVE, TRANSFERRED PT TO ROOM 417, HE IS STABLE. NO COMPLAINS OF BEING IN PAIN OR IN ANY FORMS OF DISTRESS.
[2019-06-27 23:00] VITALS: BP 126/86
[2019-06-28] MEDS: HYDROCODONE/ACETAMINOPHEN 5/325 MG TAB PO PRN ×2 (03:37→09:53)
[2019-06-28 03:39] VITALS: BP 127/69
[2019-06-28] MEDS: INSULIN LISPRO 100 UNIT/ML 3ML SQ SCH ×6 (06:31→21:12)
[2019-06-28 07:56] VITALS: BP 120/77
[2019-06-28] MEDS: FOLIC ACID 1 MG TABLET PO SCH ×2 (09:50→21:10)
[2019-06-28] MEDS: GABAPENTIN 300 MG CAPSULE PO SCH ×3 (09:50→21:09)
[2019-06-28] MEDS: THIAMINE HCL 100 MG TABLET PO SCH (09:50)
[2019-06-28] MEDS: ENOXAPARIN SODIUM 30 MG/0.3 ML SQ SCH (09:54)
[2019-06-28] MEDS ORDERED: VANCOMYCIN 1.5 GM in SODIUM CHLORIDE 0.9% 250 ML IV SCH (10:00)
--- NOTE | 2019-06-28 10:15 | NUR ---
DR. HENDERSON IN ROOM SPEAKING WITH PT.
[2019-06-28 11:49] VITALS: BP 124/62
--- NOTE | 2019-06-28 15:45 | NUR ---
Nutrition Intervention: Nutrition screen based on LOS x 6 days. Pt. asleep during RD visit. Pt. on 60gm CCD diet with good p.o. intake, as noted in EMR. Labs reviewed(BG 179, HgbA1c 9.3%, Alb 1.7). SR-20, elastic. LBM: 06/27/2019. BMI: 31.5, Obesity Grade 1. Recommendations: 1) Rec. 60gm CCD Heart healthy diet. 2) Rec. 30ml ProMod TID with meals. 3) Continue to monitor pt's nutritional status. 4) Consult RD as nutrition concerns arise. Addendum: 06/28/19 at [address] Amended: Links added.
[2019-06-28 16:20] VITALS: BP 128/73
--- NOTE | 2019-06-28 17:52 | NUR ---
DR. PENA IN ROOM SPEAKING WITH PT. RE:PLAN OF CARE. QUESTIONS ANSWERED BY DR. PENA.
[2019-06-28 20:10] VITALS: BP 133/81
[2019-06-28] MEDS: CEFTRIAXONE SODIUM 1 GM IVP SCH (21:09)
[2019-06-28] MEDS: INSULIN GLARGINE 100 UNITS/ML 10 ML VIAL SQ SCH (21:10)
[2019-06-28] MEDS: VANCOMYCIN 1.5 GM in SODIUM CHLORIDE 0.9% 250 ML IV SCH (21:10)
[2019-06-28 23:46] VITALS: BP 132/75
[2019-06-29 03:30] VITALS: BP 117/55
[2019-06-29 04:20] LABS: BASOPHILS % (AUTO) 0.4 % (0.0-5.0); EOSINOPHILS % (AUTO) 1.8 % (0.0-8.0); HEMATOCRIT 35.7 % (42-54); LYMPHOCYTES % (AUTO) 30.1 % (21.0-51.0); MEAN CORPUSCULAR HEMOGLOBIN 29.8 pg (27.0-33.0); MEAN CORPUSCULAR HGB CONC 33.3 g/dL (32.0-36.0); MEAN CORPUSCULAR VOLUME 89.5 fL (79-99); NEUTROPHILS % (AUTO) 57.7 % (40.0-77.0); PLATELET COUNT (AUTO) 384 K/uL (130-400); RED BLOOD CELL COUNT(AUTO) 3.99 MIL/uL (4.50-6.20); RED CELL DISTRIBUTION WIDTH 13.5 % (11.0-15.5); WHITE BLOOD COUNT (AUTO) 7.9 K/uL (4.8-10.8)
[2019-06-29 05:29] LABS: ERYTHROCYTE SEDIMENTATION RATE 82 MM/HR (0-20)
[2019-06-29] MEDS: INSULIN LISPRO 100 UNIT/ML 3ML SQ SCH ×7 (06:51→22:29)
[2019-06-29 07:30] VITALS: BP 113/62
[2019-06-29] MEDS: THIAMINE HCL 100 MG TABLET PO SCH (08:31)
[2019-06-29] MEDS: FOLIC ACID 1 MG TABLET PO SCH ×2 (08:31→20:20)
[2019-06-29] MEDS: GABAPENTIN 300 MG CAPSULE PO SCH ×3 (08:32→20:20)
[2019-06-29] MEDS: HYDROCODONE/ACETAMINOPHEN 5/325 MG TAB PO PRN ×2 (08:33→20:25)
[2019-06-29] MEDS: ENOXAPARIN SODIUM 30 MG/0.3 ML SQ SCH (08:34)
[2019-06-29 11:00] VITALS: BP 116/67
[2019-06-29] MEDS: VANCOMYCIN 1.5 GM in SODIUM CHLORIDE 0.9% 250 ML IV SCH ×2 (11:52→20:26)
[2019-06-29 16:00] VITALS: BP 114/61
[2019-06-29 19:57] VITALS: BP 137/77
[2019-06-29] MEDS: CEFTRIAXONE SODIUM 1 GM IVP SCH (20:19)
[2019-06-29] MEDS: INSULIN GLARGINE 100 UNITS/ML 10 ML VIAL SQ SCH (22:30)
[2019-06-29 23:37] VITALS: BP 121/73
[2019-06-30 04:03] VITALS: BP 114/68
[2019-06-30] MEDS: INSULIN LISPRO 100 UNIT/ML 3ML SQ SCH ×7 (06:51→20:30)
[2019-06-30] MEDS: HYDROCODONE/ACETAMINOPHEN 5/325 MG TAB PO PRN (06:52)
[2019-06-30 07:30] VITALS: BP 133/97
[2019-06-30] MEDS: THIAMINE HCL 100 MG TABLET PO SCH ×2 (09:00→10:47)
[2019-06-30] MEDS: FOLIC ACID 1 MG TABLET PO SCH ×2 (10:27→20:28)
[2019-06-30] MEDS: VANCOMYCIN 1.5 GM in SODIUM CHLORIDE 0.9% 250 ML IV SCH ×2 (10:27→20:28)
[2019-06-30] MEDS: ENOXAPARIN SODIUM 30 MG/0.3 ML SQ SCH (10:43)
[2019-06-30] MEDS: GABAPENTIN 300 MG CAPSULE PO SCH ×3 (10:43→20:28)
[2019-06-30 11:00] VITALS: BP 119/65
--- NOTE | 2019-06-30 12:07 | NUR ---
CM Note: Spoke to Dr Ricketts POC abx CM spoke to Dr Ricketts regarding abx. As per Dr Ricketts pt to continue on Vanco Q12 until 07/07. Dr Freed made aware. CM to cont to follow up.
[2019-06-30 16:00] VITALS: BP 136/82
[2019-06-30 20:00] VITALS: BP 121/74
[2019-06-30] MEDS: CEFTRIAXONE SODIUM 1 GM IVP SCH (20:28)
[2019-06-30] MEDS: INSULIN GLARGINE 100 UNITS/ML 10 ML VIAL SQ SCH (20:29)
[2019-07-01] VITALS (7 sets, daily range): BP systolic 107–130; BP diastolic 62–79
[2019-07-01] MEDS: HYDROCODONE/ACETAMINOPHEN 5/325 MG TAB PO PRN ×2 (03:49→17:37)
[2019-07-01 04:02] LABS: BASOPHILS % (AUTO) 0.5 % (0.0-5.0); EOSINOPHILS % (AUTO) 1.6 % (0.0-8.0); HEMATOCRIT 35.1 % (42-54); LYMPHOCYTES % (AUTO) 30.7 % (21.0-51.0); MEAN CORPUSCULAR HEMOGLOBIN 29.3 pg (27.0-33.0); MEAN CORPUSCULAR HGB CONC 32.8 g/dL (32.0-36.0); MEAN CORPUSCULAR VOLUME 89.5 fL (79-99); MONOCYTES % (AUTO) 9.2 % (3.0-13.0); NEUTROPHILS % (AUTO) 57.3 % (40.0-77.0); PLATELET COUNT (AUTO) 400 K/uL (130-400); RED BLOOD CELL COUNT(AUTO) 3.92 MIL/uL (4.50-6.20); RED CELL DISTRIBUTION WIDTH 13.8 % (11.0-15.5); WHITE BLOOD COUNT (AUTO) 7.6 K/uL (4.8-10.8)
[2019-07-01 04:14] LABS: POTASSIUM 3.5 mmol/L (3.5-5.1)
[2019-07-01] MEDS: INSULIN LISPRO 100 UNIT/ML 3ML SQ SCH ×7 (06:30→21:56)
--- NOTE | 2019-07-01 08:30 | NUR ---
AM ASSESSMENT PT LAYING IN BED, HOB ELEVATED 30 DEGREES, RESTING. A/O X 3. NO SOB. NO DISTRESS NOTED. DENIES CHEST PAIN OR DISCOMFORT. DENIES PALPITATIONS. DENIES BLE PAIN @ THIS TIME. TELE: SR. DENIES N/V AND/OR DIARRHEA. UP AD VALERIANO, STAND BY ASSIST IF NEEDED. INSTRUCTED TO CALL FOR ASSISTANCE. CALL MIKAELA W/IN REACH.
[2019-07-01] MEDS: FOLIC ACID 1 MG TABLET PO SCH ×2 (09:00→21:39)
[2019-07-01] MEDS: POTASSIUM CHLORIDE 20 MEQ ERTAB PO PRN ×2 (09:00→10:25)
[2019-07-01] MEDS: GABAPENTIN 300 MG CAPSULE PO SCH ×3 (09:00→21:39)
[2019-07-01] MEDS: THIAMINE HCL 100 MG TABLET PO SCH (09:00)
[2019-07-01] MEDS: ENOXAPARIN SODIUM 30 MG/0.3 ML SQ SCH (09:01)
[2019-07-01] MEDS: VANCOMYCIN 1.5 GM in SODIUM CHLORIDE 0.9% 250 ML IV SCH ×2 (09:01→21:41)
[2019-07-01] MEDS: CEFTRIAXONE SODIUM 1 GM IVP SCH (21:40)
[2019-07-01] MEDS: INSULIN GLARGINE 100 UNITS/ML 10 ML VIAL SQ SCH (21:55)
[2019-07-02 03:49] VITALS: BP 106/66
[2019-07-02] MEDS: HYDROCODONE/ACETAMINOPHEN 5/325 MG TAB PO PRN ×2 (04:15→17:03)
[2019-07-02 04:55] LABS: POTASSIUM 3.5 mmol/L (3.5-5.1)
[2019-07-02] MEDS: INSULIN LISPRO 100 UNIT/ML 3ML SQ SCH ×7 (05:43→20:55)
[2019-07-02 08:21] VITALS: BP 120/73
[2019-07-02] MEDS: GABAPENTIN 300 MG CAPSULE PO SCH ×3 (08:25→20:45)
[2019-07-02] MEDS: THIAMINE HCL 100 MG TABLET PO SCH (08:25)
[2019-07-02] MEDS: FOLIC ACID 1 MG TABLET PO SCH ×2 (08:25→20:45)
[2019-07-02] MEDS: POTASSIUM CHLORIDE 20 MEQ ERTAB PO PRN (08:26)
[2019-07-02] MEDS: ENOXAPARIN SODIUM 30 MG/0.3 ML SQ SCH (08:30)
[2019-07-02] MEDS: VANCOMYCIN 1.5 GM in SODIUM CHLORIDE 0.9% 250 ML IV SCH ×2 (08:32→20:45)
[2019-07-02 11:05] VITALS: BP 115/72
[2019-07-02 16:32] VITALS: BP 122/74
[2019-07-02 20:10] VITALS: BP 117/69
[2019-07-02] MEDS: INSULIN GLARGINE 100 UNITS/ML 10 ML VIAL SQ SCH (20:48)
[2019-07-02 23:12] VITALS: BP 110/68
[2019-07-03 03:19] VITALS: BP 108/63
[2019-07-03 05:21] LABS: HEMATOCRIT 33.6 % (42-54); MEAN CORPUSCULAR HGB CONC 32.7 g/dL (32.0-36.0); MEAN CORPUSCULAR VOLUME 91.6 fL (79-99); PLATELET COUNT (AUTO) 428 K/uL (130-400); RED BLOOD CELL COUNT(AUTO) 3.67 MIL/uL (4.50-6.20); RED CELL DISTRIBUTION WIDTH 13.9 % (11.0-15.5); WHITE BLOOD COUNT (AUTO) 7.8 K/uL (4.8-10.8)
[2019-07-03 05:25] LABS: POTASSIUM 3.7 mmol/L (3.5-5.1)
[2019-07-03 05:41] LABS: LYMPHOCYTES % (MANUAL) 32 % (22-44); MONOCYTES % (MANUAL) 4 % (2-9); SEGMENTED NEUTROPHILS % 64 % (40-70)
[2019-07-03 05:42] LABS: MAN.DIFF COMMENT-IMPRESSION MANUAL DIFFERENTIAL; PLATELET MORPHOLOGY COMMENT ADEQUATE
[2019-07-03 06:48] LABS: ERYTHROCYTE SEDIMENTATION RATE 118 MM/HR (0-20)
[2019-07-03] MEDS: INSULIN LISPRO 100 UNIT/ML 3ML SQ SCH ×7 (06:50→21:00)
[2019-07-03 07:33] VITALS: BP 116/64
[2019-07-03] MEDS: GABAPENTIN 300 MG CAPSULE PO SCH ×3 (08:45→21:21)
[2019-07-03] MEDS: FOLIC ACID 1 MG TABLET PO SCH ×2 (08:45→21:21)
[2019-07-03] MEDS: THIAMINE HCL 100 MG TABLET PO SCH (08:45)
[2019-07-03] MEDS: HYDROCODONE/ACETAMINOPHEN 5/325 MG TAB PO PRN ×2 (08:46→18:37)
[2019-07-03] MEDS: VANCOMYCIN 1.5 GM in SODIUM CHLORIDE 0.9% 250 ML IV SCH ×2 (08:48→22:46)
[2019-07-03] MEDS: ENOXAPARIN SODIUM 30 MG/0.3 ML SQ SCH (08:51)
[2019-07-03 11:18] VITALS: BP 112/66
--- NOTE | 2019-07-03 15:05 | NUR ---
DR. Monica ACLALA IN ROOM SPEAKING WITH PT. RE:PLAN OF CARE.
[2019-07-03] MEDS ORDERED: DOCUSATE SODIUM 100 MG CAP PO PRN (15:30)
[2019-07-03 15:55] VITALS: BP 110/66
[2019-07-03 19:31] VITALS: BP 100/60
[2019-07-03] MEDS ORDERED: DIPHENHYDRAMINE HCL 50 MG CAPSULE PO SCH (21:00)
[2019-07-03] MEDS ORDERED: DiphenhydrAMINE HCL 25 MG/10 ML ELIXIR UDCUP PO SCH (21:00)
[2019-07-03] MEDS ORDERED: HYDROXYZINE HCL 25 MG TABLET ONE (22:42)
[2019-07-03] MEDS: HYDROXYZINE HCL 25 MG TABLET PO SCH (22:45)
[2019-07-03] MEDS: INSULIN GLARGINE 100 UNITS/ML 10 ML VIAL SQ SCH (22:46)
[2019-07-03 23:30] VITALS: BP 130/83
[2019-07-04 03:59] VITALS: BP 121/79
[2019-07-04] MEDS: HYDROCODONE/ACETAMINOPHEN 5/325 MG TAB PO PRN ×3 (04:24→21:54)
[2019-07-04] MEDS: INSULIN LISPRO 100 UNIT/ML 3ML SQ SCH ×7 (05:10→21:00)
[2019-07-04 07:43] VITALS: BP 118/65
[2019-07-04] MEDS: THIAMINE HCL 100 MG TABLET PO SCH (08:46)
[2019-07-04] MEDS: FOLIC ACID 1 MG TABLET PO SCH ×2 (08:46→21:54)
[2019-07-04] MEDS: GABAPENTIN 300 MG CAPSULE PO SCH ×3 (08:46→21:53)
[2019-07-04] MEDS: ENOXAPARIN SODIUM 30 MG/0.3 ML SQ SCH (08:47)
[2019-07-04] MEDS: VANCOMYCIN 1.5 GM in SODIUM CHLORIDE 0.9% 250 ML IV SCH ×2 (10:41→21:53)
[2019-07-04 11:48] VITALS: BP 116/69
[2019-07-04 16:00] VITALS: BP 108/66
[2019-07-04 19:00] VITALS: BP 101/65
[2019-07-04] MEDS ORDERED: DIPHENHYDRAMINE HCL 50 MG CAPSULE PO PRN (20:00)
[2019-07-04] MEDS ORDERED: DiphenhydrAMINE HCL 25 MG/10 ML ELIXIR UDCUP PO PRN (20:00)
[2019-07-04] MEDS: INSULIN GLARGINE 100 UNITS/ML 10 ML VIAL SQ SCH (21:00)
[2019-07-04] MEDS: HYDROXYZINE HCL 25 MG TABLET PO SCH (22:45)
[2019-07-05] VITALS (7 sets, daily range): BP systolic 104–117; BP diastolic 61–73
[2019-07-05 03:54] LABS: BASOPHILS % (AUTO) 1.2 % (0.0-5.0); EOSINOPHILS % (AUTO) 3.3 % (0.0-8.0); HEMATOCRIT 34.3 % (42-54); LYMPHOCYTES % (AUTO) 48.1 % (21.0-51.0); MEAN CORPUSCULAR HEMOGLOBIN 30.2 pg (27.0-33.0); MEAN CORPUSCULAR HGB CONC 32.9 g/dL (32.0-36.0); MEAN CORPUSCULAR VOLUME 91.7 fL (79-99); NEUTROPHILS % (AUTO) 36.9 % (40.0-77.0); PLATELET COUNT (AUTO) 369 K/uL (130-400); RED BLOOD CELL COUNT(AUTO) 3.74 MIL/uL (4.50-6.20); RED CELL DISTRIBUTION WIDTH 13.8 % (11.0-15.5)
[2019-07-05 04:14] LABS: ALBUMIN 2.1 g/dL (3.5-5.0); BILIRUBIN,TOTAL 0.6 mg/dL (0.2-1.0); POTASSIUM 3.7 mmol/L (3.5-5.1); TOTAL PROTEIN, SERUM 7.9 g/dL (6.0-8.3)
[2019-07-05] MEDS: INSULIN LISPRO 100 UNIT/ML 3ML SQ SCH ×7 (06:18→21:30)
[2019-07-05] MEDS: FOLIC ACID 1 MG TABLET PO SCH ×2 (09:35→21:25)
[2019-07-05] MEDS: THIAMINE HCL 100 MG TABLET PO SCH (09:35)
[2019-07-05] MEDS: GABAPENTIN 300 MG CAPSULE PO SCH ×3 (09:35→21:25)
[2019-07-05] MEDS: VANCOMYCIN 1.5 GM in SODIUM CHLORIDE 0.9% 250 ML IV SCH ×2 (09:36→21:32)
[2019-07-05] MEDS: ENOXAPARIN SODIUM 30 MG/0.3 ML SQ SCH (09:36)
--- NOTE | 2019-07-05 14:56 | NUR ---
RD FOLLOW UP Pt tolerating 60gm CC, Heart Healthy diet order with no report of GI distress, Good PO intake at 100%. Pt with 30mL Promod in place, TID. Pt refusal of nutrition education d/t classes in the past. Education material left in Pt chart, Pt notified. Pt interviewed over the phone d/t Contact Isolation protocol. RD to continue to monitor. Please notify as additional nutrition concerns arise. Thank you. Addendum: 07/05/19 at [address] RD Amended: Links added.
--- NOTE | 2019-07-05 14:59 | NUR ---
NUTRITION EDUCATION Pt denies need for Diabetes Nutrition Education secondary to receiving Diabetes classes in the past. MICHELLE notified Pt of Reference materials in chart. Pt verbalized understanding. Addendum: 07/05/19 at [address] RD Amended: Links added.
[2019-07-05] MEDS: HYDROCODONE/ACETAMINOPHEN 5/325 MG TAB PO PRN (18:34)
[2019-07-05] MEDS: INSULIN GLARGINE 100 UNITS/ML 10 ML VIAL SQ SCH (21:31)
[2019-07-05] MEDS: DIPHENHYDRAMINE HCL 25 MG CAPSULE PO PRN (21:46)
[2019-07-06 03:46] VITALS: BP 112/67
[2019-07-06] MEDS: INSULIN LISPRO 100 UNIT/ML 3ML SQ SCH ×7 (05:55→20:54)
--- NOTE | 2019-07-06 07:30 | NUR ---
note AAOX3. DENIES PAIN OR DISCOMFORT THIS AM. NO N/V OR OTHER PROBLEM VOICED. CAME IN WITH SEVERE WEAKNESS TO BLE. STATES HE FEELS A LOT BETTER NOW. NO WOUNDS RASHES OR OTHER SKIN BREAKDOWN. HE WAS FOUND TO HAVE MRSA IN URINE AND BLOOD CULTURES. CURRENTLY RECEIVING IV VANCOMYCIN AND HE WILL COMPLETE ABX REGIMEN THURSDAY. POSSIBLE DC HOME AFTER THAT. HE IS IN CONTACT PRECAUTIONS DE TO MRSA + CULTURES.
[2019-07-06 07:44] VITALS: BP 107/65
[2019-07-06] MEDS: GABAPENTIN 300 MG CAPSULE PO SCH ×3 (08:08→20:54)
[2019-07-06] MEDS: ENOXAPARIN SODIUM 30 MG/0.3 ML SQ SCH (08:08)
[2019-07-06] MEDS: THIAMINE HCL 100 MG TABLET PO SCH (08:09)
[2019-07-06] MEDS: FOLIC ACID 1 MG TABLET PO SCH ×2 (08:09→20:54)
[2019-07-06] MEDS: VANCOMYCIN 1.5 GM in SODIUM CHLORIDE 0.9% 250 ML IV SCH (11:33)
[2019-07-06 11:41] VITALS: BP 99/67
[2019-07-06 17:44] VITALS: BP 110/68
[2019-07-06 19:23] VITALS: BP 113/69
[2019-07-06] MEDS: INSULIN GLARGINE 100 UNITS/ML 10 ML VIAL SQ SCH (20:44)
[2019-07-06] MEDS: HYDROCODONE/ACETAMINOPHEN 5/325 MG TAB PO PRN (20:54)
[2019-07-06] MEDS ORDERED: VANCOMYCIN 1.5 GM in SODIUM CHLORIDE 0.9% 250 ML IV SCH (21:30)
[2019-07-06] MEDS: DIPHENHYDRAMINE HCL 25 MG CAPSULE PO PRN (22:28)
[2019-07-06 23:15] VITALS: BP 116/58
[2019-07-07 03:51] VITALS: BP 110/68
[2019-07-07 04:20] LABS: EOSINOPHILS % (AUTO) 3.6 % (0.0-8.0); HEMATOCRIT 35.9 % (42-54); LYMPHOCYTES % (AUTO) 46.2 % (21.0-51.0); MEAN CORPUSCULAR HEMOGLOBIN 30.7 pg (27.0-33.0); MEAN CORPUSCULAR HGB CONC 33.4 g/dL (32.0-36.0); MEAN CORPUSCULAR VOLUME 91.8 fL (79-99); MONOCYTES % (AUTO) 9.6 % (3.0-13.0); NEUTROPHILS % (AUTO) 39.3 % (40.0-77.0); PLATELET COUNT (AUTO) 336 K/uL (130-400); RED BLOOD CELL COUNT(AUTO) 3.91 MIL/uL (4.50-6.20); RED CELL DISTRIBUTION WIDTH 13.6 % (11.0-15.5)
[2019-07-07 04:25] LABS: CREATININE 1.1 mg/dL (0.5-1.5); CRP QUANTITATIVE 11.8 mg/L (0.00-9.0); MAGNESIUM 1.9 mg/dL (1.80-2.40); PHOSPHORUS 3.9 mg/dL (2.5-4.9); POTASSIUM 3.6 mmol/L (3.5-5.1)
[2019-07-07 04:44] LABS: B-TYPE NATRIURETIC PEPTIDE 14 pg/mL (0-100)
[2019-07-07] MEDS: GABAPENTIN 300 MG CAPSULE PO SCH ×3 (05:06→21:13)
[2019-07-07] MEDS: INSULIN LISPRO 100 UNIT/ML 3ML SQ SCH ×7 (05:17→20:55)
[2019-07-07] MEDS ORDERED: VANCOMYCIN PROTOCOL PER PHARMACY IV SCH (07:45)
[2019-07-07] MEDS: FOLIC ACID 1 MG TABLET PO SCH ×2 (08:02→21:02)
[2019-07-07] MEDS: THIAMINE HCL 100 MG TABLET PO SCH (08:02)
[2019-07-07] MEDS: ENOXAPARIN SODIUM 30 MG/0.3 ML SQ SCH (08:04)
[2019-07-07 08:05] VITALS: BP 104/67
[2019-07-07 11:45] VITALS: BP 96/60
[2019-07-07 16:36] VITALS: BP 101/69
[2019-07-07 19:43] VITALS: BP 116/75
[2019-07-07] MEDS: INSULIN GLARGINE 100 UNITS/ML 10 ML VIAL SQ SCH (21:00)
[2019-07-07 23:06] VITALS: BP 92/50
--- NOTE | 2019-07-07 23:13 | NUR ---
PATIENT REFUSED PM DOSE OF LANTUS 20 UNITS. STATES HE IS FAMILIAR WITH MEDICATION, LONG ACTING, AND HE IS AFRAID HIS SUGAR WILL DROP. LEVEL AT 86 MG/DL. WILL CONT TO MONITOR. DISCUSSED WITH PATIENT POC AND PENDING VANCOMYCIN TROUGH FOR TOMORROW.
[2019-07-08] MEDS: DIPHENHYDRAMINE HCL 25 MG CAPSULE PO PRN (00:24)
[2019-07-08] MEDS: HYDROCODONE/ACETAMINOPHEN 5/325 MG TAB PO PRN (00:25)
[2019-07-08 03:06] VITALS: BP 102/63
[2019-07-08 04:03] LABS: EOSINOPHILS % (AUTO) 5.2 % (0.0-8.0); HEMATOCRIT 35.5 % (42-54); LYMPHOCYTES % (AUTO) 43.3 % (21.0-51.0); MEAN CORPUSCULAR HEMOGLOBIN 30.3 pg (27.0-33.0); MEAN CORPUSCULAR HGB CONC 33.2 g/dL (32.0-36.0); MEAN CORPUSCULAR VOLUME 91.3 fL (79-99); NEUTROPHILS % (AUTO) 41.2 % (40.0-77.0); PLATELET COUNT (AUTO) 298 K/uL (130-400); RED BLOOD CELL COUNT(AUTO) 3.89 MIL/uL (4.50-6.20); RED CELL DISTRIBUTION WIDTH 13.9 % (11.0-15.5); WHITE BLOOD COUNT (AUTO) 7.4 K/uL (4.8-10.8)
[2019-07-08 04:23] LABS: POTASSIUM 3.8 mmol/L (3.5-5.1); VANCOMYCIN LEVEL 8.5 mcg/mL (18.0-26.0)
[2019-07-08] MEDS: INSULIN LISPRO 100 UNIT/ML 3ML SQ SCH ×6 (05:43→16:34)
[2019-07-08] MEDS: GABAPENTIN 300 MG CAPSULE PO SCH ×2 (05:43→14:31)
[2019-07-08] MEDS ORDERED: GABA-531 PO (07:48)
[2019-07-08 08:37] VITALS: BP 116/74
[2019-07-08] MEDS: FOLIC ACID 1 MG TABLET PO SCH (08:57)
[2019-07-08] MEDS: THIAMINE HCL 100 MG TABLET PO SCH (08:57)
[2019-07-08] MEDS: ENOXAPARIN SODIUM 30 MG/0.3 ML SQ SCH (08:58)
[2019-07-08 11:43] VITALS: BP 124/66
[2019-07-08 15:36] VITALS: BP 107/73
== END 2019-07-08 17:31 | disposition home or self-care (01) | DRG 872 ==
LOC: EDH 13:57 → EDHIP 13:58 → 2DH 20:23 → 4CH 06-27 22:09 → 4AH 07-08 12:11 → 4CH 07-08 12:12
PROVIDERS: ADMIT Internal Medicine; ATTEND Internal Medicine
DX: A41.02 Sepsis due to Methicillin resistant Staphylococcus aureus (principal); N39.0 Urinary tract infection, site not specified; L03.115 Cellulitis of right lower limb; E87.1 Hypo-osmolality and hyponatremia; E44.0 Moderate protein-calorie malnutrition; M54.16 Radiculopathy, lumbar region; I10 Essential (primary) hypertension; E78.5 Hyperlipidemia, unspecified; E11.42 Type 2 diabetes mellitus with diabetic polyneuropathy; R70.0 Elevated erythrocyte sedimentation rate; M47.816 Spondylosis without myelopathy or radiculopathy, lumbar region; M48.061 Spinal stenosis, lumbar region without neurogenic claudication; M51.27 Other intervertebral disc displacement, lumbosacral region; Z68.29 Body mass index [BMI] 29.0-29.9, adult; B96.89 Other specified bacterial agents as the cause of diseases classified elsewhere; E87.6 Hypokalemia; D64.9 Anemia, unspecified; E11.44 Type 2 diabetes mellitus with diabetic amyotrophy; E66.9 Obesity, unspecified; Z03.818 Encounter for observation for suspected exposure to other biological agents ruled out; Z83.3 Family history of diabetes mellitus
CPT/HCPCS: 36415; 36600; 70450; 70551; 71045; 72148; 72157; 80048; 80053; 80061; 80076; 80202; 80305; 81001; 82550; 82607; 82728; 82803; 82948; 83036; 83605; 83735; 83874; 83880; 84100; 84145; 84425; 84443; 85025; 85378; 85651; 86140; 87040; 87077; 87088; 87186; 87635; 93306; 93356; 93970; 97039; A9579; G0378; J0696; J1650; J1815; J1885; J2543; J3370; J3480; J7040; J7050; Q0163

== ENCOUNTER 2020-03-04 17:08 | Emergency (ER) | payer OTHER ==
[~2020-03-04 17:08] MED LIST changes: +GABA-531 PO; -GLIP10TA9 PO; +HUM10VIA SQ; +INS7030 SQ; -SULF1TAB42 PO; -insulin 70/30 SQ
[2020-03-04] MEDS ORDERED: CLINDAMYCIN HCL 150 MG CAP ONE (17:59)
[2020-03-04] MEDS ORDERED: KETOROLAC TROMETHAMINE 30MG/ML ONE (18:00)
[2020-03-04] MEDS ORDERED: HYDROCODONE/ACETAMINOPHEN 5/325 MG TAB ONE (18:00)
[2020-03-04] MEDS ORDERED: ACETAMINOPHEN 325 MG TAB ONE (18:07)
[2020-03-04] MEDS ORDERED: LIDOCAINE HCL 1% 20 ML VIAL ONE (20:09)
== END 2020-03-04 20:36 | disposition home or self-care (01) ==
LOC: EDH 17:08
DX: L02.811 Cutaneous abscess of head [any part, except face] (principal); I10 Essential (primary) hypertension; E11.9 Type 2 diabetes mellitus without complications; E78.00 Pure hypercholesterolemia, unspecified; Z90.49 Acquired absence of other specified parts of digestive tract
CPT/HCPCS: 10060; 87070; 87076; 96372; 99284; J1885; 87077; 87186

== ENCOUNTER 2020-03-09 16:21 | Emergency (ER) | payer SELFPAY ==
[~2020-03-09 16:21] MED LIST changes: +LISI10TA24 PO; -LISI10TA7 PO
[2020-03-09] MEDS ORDERED: LEVOFLOXACIN 500 MG/D5W 100 ML 100 ML ONE ×2 (16:59→17:04)
[2020-03-09] MEDS ORDERED: HYDROCODONE/ACETAMINOPHEN 10/325 MG TAB ONE (17:00)
[2020-03-09] MEDS ORDERED: INSULIN HUMULIN R 100 UNIT/ML 3ML ONE (17:01)
[2020-03-09] MEDS ORDERED: SODIUM CHLORIDE 0.9% 1000ML 1,000 ML IV ONE (17:01)
[2020-03-09] MEDS ORDERED: LORAZEPAM 2 MG/ML 1 ML VIAL ONE (18:21)
[2020-03-09] MEDS ORDERED: ASPIRIN 325 MG TABLET ONE (18:21)
== END 2020-03-09 18:27 | disposition home or self-care (01) ==
LOC: EDH 16:21
DX: L02.811 Cutaneous abscess of head [any part, except face] (principal); E11.9 Type 2 diabetes mellitus without complications; E78.00 Pure hypercholesterolemia, unspecified; I10 Essential (primary) hypertension; Z87.891 Personal history of nicotine dependence
CPT/HCPCS: 36415; 82010; 82948 ×2; 96365; 96375; 99284; J1815; J1956 ×2; J7030; J2060

== ENCOUNTER 2021-03-14 23:18 | Emergency (ER) | payer OTHER ==
[~2021-03-14] VITALS: Ht 167.6 cm; Wt 95.3 kg
[2021-03-15 00:50] VITALS: BP 148/69
== END 2021-03-15 00:58 | disposition home or self-care (01) ==
LOC: EDH 23:18
DX: U07.1 COVID-19 (principal); I10 Essential (primary) hypertension; E78.00 Pure hypercholesterolemia, unspecified; E10.9 Type 1 diabetes mellitus without complications; Z79.4 Long term (current) use of insulin; Z79.899 Other long term (current) drug therapy
CPT/HCPCS: 87635; 99283; C9803

== ENCOUNTER 2021-07-23 19:00 | Emergency (ER) | payer OTHER ==
[~2021-07-23] VITALS: Ht 165.1 cm; Wt 86.2 kg
[2021-07-23 19:35] VITALS: BP 135/74
[2021-07-23] MEDS ORDERED: ACETAMINOPHEN WITH CODEINE 1 TAB TAB PO ONE (20:00)
[2021-07-23] MEDS ORDERED: LIDOCAINE HCL MPF 1% 5ML VIAL IM SCH (20:00)
[2021-07-23] MEDS ORDERED: CLIN-141 PO (20:21)
[2021-07-23] MEDS ORDERED: CLINDAMYCIN 150 MG CAP PO ONE (20:30)
== END 2021-07-23 21:09 | disposition home or self-care (01) ==
LOC: EDH 19:00
DX: L02.211 Cutaneous abscess of abdominal wall (principal); E11.9 Type 2 diabetes mellitus without complications; Z79.899 Other long term (current) drug therapy; Z79.84 Long term (current) use of oral hypoglycemic drugs; Z79.4 Long term (current) use of insulin; Z98.890 Other specified postprocedural states
CPT/HCPCS: 10061; 82948; 99284; J3490